=== PATIENT | female | born 1990 | race Caucasian/White ===

== ENCOUNTER 2016-05-16 04:33 | Emergency (ER) | payer OTHER ==
[~2016-05-16] VITALS: Ht 175.3 cm; Wt 117.9 kg
[~2016-05-16 04:33] MED LIST: IBUPROFEN800 MG PO; PERCOCET 325 MG1 TA2 PO; TRAMADOL50 MG PO; ZOFRAN4 M1 PO
--- NOTE | 2016-05-16 04:52 | ED GI/GU/ABDOMINAL COMPLAINT ---
See Addendum History of Present Illness General Chief Complaint: Abdominal Pain/Flank Pain Stated Complaint: "I HAVING REALLY BAD PAIN RIGHT HERE" UQ R/L PAIN Source: patient, family, old records Exam Limitations: no limitations Vital Signs & Intake/Output Vital Signs & Intake/Output Vital Signs Date Time Temp Pulse Resp B/P Pulse O2 O2 Flow FiO2 Ox Delivery Rate 05/16 0502 Room Air 05/16 0436 97.0 98 20 121/74 96 Room Air Allergies Coded Allergies: NO KNOWN ALLERGIES (11/14/13) Reconcile Medications Albuterol Sulfate (Proair Hfa) 90 MCG HFA.AER.AD 2 PUF INH Q4-6 PRN PRN PNEUMONIA (Reported) Azithromycin 250 MG TABLET 1 DP PO AD PNEUMONIA (Reported) 2 the first day followed by 1 for days 2-5 Escitalopram Oxalate 20 MG TABLET 1 TAB PO DAILY ANXIETY (Reported) Guaifenesin/Codeine Phosphate (Cheratussin AC Syrup) 100 MG-10 MG/5 ML LIQUID 5 ML PO Q6P PRN PNEUMONIA (Reported) Ondansetron (Zofran Odt) 4 MG TAB.RAPDIS 1 TAB PO Q6P PRN NAUSEA/VOMITING OXYCODONE HCL/ACETAMINOPHEN (Percocet 5-325 MG Tablet) 325 MG/5 MG TAB 1-2 TAB PO Q6-8P PRN PAIN Triage Note: PT WAS DIAGNOSED WITH PNEUMONIA 05/15, GIVEN Z-ZAIN PRO-AIR, AND ROBITUSSIN WITH CODEINE. PT STATES SHE TOOK Z-ZAIN AT 1500 AND CODEINE LAST AT 2300. PT STATES SHE WOKE UP TO 10/10 ABDOMINAL PAIN AND VIOLENTLY THROWING UP. PAIN IS ON AND OFF, SHARP PAIN. PT STATES SHE FEELS LIKE THE PAIN WAS WHEN SHE HAD HER GALLBLADDER ATTACK. Triage Nurses Notes Reviewed? yes ? N Is pt currently ? No HPI: Patient was diagnosed with pneumonia yesterday and was started on a Z-Zain as well as cough medicine with codeine. Patient woke up in the middle night with right upper quadrant and epigastric crampy pain. The pain waxes and wanes in intensity but never goes away entirely. One the pain is at its worst she also becomes nauseous. Patient has had a few episodes of dry heaving but has not thrown up. At its worst the pain is 10 out of 10 and at its best it is 6 out of 10. There are no fevers or chills. There is no radiation of the pain. There are no aggravating or mitigating factors. Patient states he feels very similar to before she had her gallbladder out. Past History Travel History Traveled to [place] past 21 day No Medical History Any Pertinent Medical History? 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 No Review of Systems Review of Systems Constitutional: Reports: see HPI, chills. EENTM: Reports: no symptoms. Respiratory: Reports: see HPI, cough. Cardiovascular: Reports: no symptoms. GI: Reports: see HPI, abdominal pain, nausea. Genitourinary: Reports: no symptoms. Musculoskeletal: Reports: no symptoms. Skin: Reports: no symptoms. Neurological/Psychological: Reports: no symptoms. Hematologic/Endocrine: Reports: no symptoms. Immunologic/Allergic: Reports: no symptoms. All Other Systems: Reviewed and Negative Physical Exam Physical Exam General Appearance: well developed/nourished, alert, awake, anxious, moderate distress Head: atraumatic, normal appearance Eyes: Bilateral: PERRL, EOMI. Ears, Nose, Throat, Mouth: hearing grossly normal, DRY MUCOSA Neck: normal inspection, supple, full range of motion Respiratory: normal breath sounds, chest non-tender, no respiratory distress, lungs clear Cardiovascular: regular rate/rhythm, normal peripheral pulses Gastrointestinal: normal bowel sounds, soft, no organomegaly, tenderness ( EPIGASTRIC AND RIGHT UPPER TITUS) Back: normal inspection, normal range of motion, NO cva TENDERNESS Extremities: normal range of motion Neurologic/Psych: no motor/sensory deficits, awake, alert, oriented x 3, normal mood/affect Skin: intact, normal color, warm/dry Core Measures ACS in differential dx? No Severe Sepsis Present: No Septic Shock Present: No Progress Differential Diagnosis: biliary colic, ectopic , gastritis, hernia, ischemic bowel, inflamm bowel dis, pancreatitis, peptic ulcer, PUD/GERD, SBO, threatened AB Plan of Care: Orders Procedure Date/time Status CT ABD & PELVIS W IV CONTRAST 05/16 635 Active LIPASE 05/16 442 Active HUMAN BETA HCG SCREEN 05/16 442 Active COMPREHENSIVE METABOLIC PANEL 05/16 442 Active CBC WITHOUT DIFFERENTIAL 05/16 442 Complete AMYLASE 05/16 442 Active Current Medications Sig/Jayde Start time Last Medication Dose Stop Time Status Admin Hydromorphone HCl 1 MG ONCE ONE 05/16 644 UNVr (Dilaudid) 05/16 645 Ondansetron HCl 4 MG ONCE ONE 05/16 644 UNVr (Zofran) 05/16 645 Laboratory Tests 05/16/165: Anion Gap 13, Estimated GFR > 60, BUN/Creatinine Ratio 18.3, Glucose 106 H, Calcium 9.0, Total Bilirubin 0.6, AST 22, ALT 34, Alkaline Phosphatase 98, Total Protein 7.5, Albumin 4.2, Globulin 3.3, Albumin/Globulin Ratio 1.3, Amylase 42, Lipase 70, Total Beta HCG Pending, CBC w Diff NO MAN DIFF REQ, RBC 5.04, MCV 78.2 L, MCH 26.0 L, RDW 16.4 H, MPV 6.8 L, Gran % 59.1, Lymphocytes % 21.9, Monocytes % 17.3 H, Eosinophils % 1.3, Basophils % 0.4, Absolute Granulocytes 3.8, Absolute Lymphocytes 1.4, Absolute Monocytes 1.1 H, Absolute Eosinophils 0.1, Absolute Basophils 0, PUBS MCHC 33.2 Initial ED EKG: none Hand-Off Endorsed To: MITCHELL BREWSTER,ANUJ Holley Endorsed Time: 0700 Pending: CT Comments: Nausea relief with the IV Zofran. No change in the pain after IV morphine and IV Toradol. We will try a GI cocktail. No relief from the GI cocktail. We will try Bentyl. Pain is much improved after Bentyl. We'll continue to observe. Pain returned as well as the nausea. Patient is concerned that she has something going on inside. Patient given IV Dilaudid and another dose of IV Zofran and a CAT scan has been ordered. Departure Departure Disposition: STILL A PATIENT Condition: Stable Clinical Impression Primary Impression: Upper abdominal pain, unspecified Referrals: VANNESSA BREWSTER,DANIEL Felipe (PCP/Family) Departure Forms: Customer Survey General Discharge Information
[2016-05-16 05:07] LABS: ABSOLUTE BASOPHIL COUNT 0 /CUMM (0.0-0.2); ABSOLUTE EOSINOPHIL COUNT 0.1 /CUMM (0.0-0.7); ABSOLUTE GRANULOCYTE CT 3.8 /CUMM (1.4-6.5); ABSOLUTE LYMPH COUNT 1.4 /CUMM (1.2-3.4); ABSOLUTE MONOCYTE COUNT 1.1 /CUMM (0.10-0.60); BASOPHIL % 0.4 % (0.0-2.0); EOSINOPHIL % 1.3 % (0-5); GRANULOCYTE % 59.1 % (42.2-75.2); HEMATOCRIT 39.4 % (37-47); MEAN CORPUSCULAR HGB CONC 33.2 G/DL (33.0-37.0); MEAN CORPUSCULAR VOLUME 78.2 FL (81.0-99.0); MEAN PLATELET VOLUME 6.8 FL (7.4-10.4); PLATELET COUNT 294 /CUMM (130-400); RBC DISTRIBUTION WIDTH 16.4 % (11.5-14.5); RED BLOOD CELL CT 5.04 /CUMM (4.20-5.40); WHITE BLOOD CELL COUNT 6.5 /CUMM (4.8-10.8)
[2016-05-16] MEDS ORDERED: AZITHROMYCIN250 M1 PO (05:15)
[2016-05-16] MEDS ORDERED: PROAIR HFA8.5 GM INH (05:16)
[2016-05-16] MEDS ORDERED: CHERATUSSIN AC118 ML PO (05:16)
[2016-05-16] MEDS ORDERED: ESCITALOPRAM OX20 MG PO (05:17)
[2016-05-16 08:49] VITALS: BP 101/55
--- NOTE | 2016-05-16 09:37 | CT SCAN REPORT ---
EXAMINATION: CT ABDOMEN AND PELVIS WITH CONTRAST CLINICAL INFORMATION: Right upper quadrant abdominal pain. Cholecystectomy in December 2015. COMPARISON: Abdomen ultrasound from 12/09/2013. TECHNIQUE: Multidetector volumetric imaging was performed of the abdomen and pelvis before and after the IV administration of 95 mL of Optiray 320 intravenous contrast. Sagittal and coronal reformatted images were obtained on the technologist's workstation. DLP: 1419 mGy-cm. FINDINGS: LUNG BASES: Minimal atelectasis in dependent aspect of each lower lobe. LIVER, GALLBLADDER, AND BILIARY TREE: Liver has normal contour and parenchymal attenuation. The right hepatic lobe is 20 cm in craniocaudal dimension. No suspicious, focal hepatic lesion or intrahepatic bile duct dilatation. The gallbladder is surgically absent and the common bile duct measures up to 7-8 mm diameter. There are no stones detected within the common duct. PANCREAS: Unremarkable. SPLEEN: Prominent spleen is 15 cm AP dimension. No focal splenic lesion. ADRENAL GLANDS: Unremarkable. KIDNEYS AND URETERS: The kidneys are normal in size, shape, and attenuation. No hydronephrosis, hydroureter, or calculi seen. No perinephric stranding. BLADDER: Unremarkable. GASTROINTESTINAL TRACT: Loops of bowel are normal in caliber. The appendix is normal. No evidence of acute inflammation or obstruction along the gastrointestinal tract. No ascites or pneumoperitoneum. ABDOMINAL WALL: A small, fat-containing umbilical hernia measures 1.8 cm wide. LYMPH NODES: No pathologic sized lymph nodes within the abdomen or pelvis. VASCULAR: Abdominal aorta is normal in caliber and the celiac trunk, SMA, GOPAL and renal arteries are widely patent. The splenic, mesenteric and portal veins are patent. The inferior vena cava is normal. PELVIC VISCERA: The uterus is retroflexed. A corpus luteum cyst of the left ovary measures 2.5 cm AP. A small, physiologic amount of free fluid is present within the pelvic cul-de-sac. OSSEOUS STRUCTURES: No acute osseous findings. The visualized lower thoracic and lumbar vertebra have normal height and alignment. IMPRESSION: 1. Hepatosplenomegaly without evidence of focal lesions. 2. Common bile duct is mildly dilated (7-8 mm diameter) in this patient who is status post cholecystectomy. This can be a normal finding after cholecystectomy, and there is no CT imaging evidence of choledocholithiasis. 3. No acute imaging findings along the gastrointestinal tract; the appendix is normal. 4. Small fat-containing umbilical hernia.
[2016-05-16] MEDS ORDERED: ZANTAC300 MG PO (10:29)
[2016-05-16] MEDS ORDERED: NORCO 5-325 TA1 EACH PO (10:29)
[2016-05-16] MEDS ORDERED: ZOFRAN ODT4 M1 SL (10:29)
== END 2016-05-16 10:38 ==
LOC: ERH 04:33
PROVIDERS: Emergency Medicine
DX: R10.13 Epigastric pain (principal); R10.11 Right upper quadrant pain
CPT/HCPCS: 74177; 96361; 96365; 96375; 96376; J1885; J2405; J2550